=== PATIENT | female | born 2000 | race Two or more races ===

== ENCOUNTER 2022-04-05 09:58 | Emergency (ER) | payer OTHER ==
[~2022-04-05] VITALS: Ht 162.6 cm; Wt 49.9 kg
[2022-04-05] MEDS ORDERED: PEPCID AC20 MG PO (15:22)
== END 2022-04-05 15:40 | disposition home or self-care (01) ==
LOC: ER 09:58
DX: K21.9 Gastro-esophageal reflux disease without esophagitis (principal); K29.70 Gastritis, unspecified, without bleeding